=== PATIENT | male | born 1985 | race African-American/Black ===

== ENCOUNTER 2018-11-24 09:56 | Emergency (ER) | payer OTHER, SELFPAY ==
[2018-11-24] MEDS ORDERED: Fluorescein Opthalmic Strip ONE (10:06)
[2018-11-24] MEDS ORDERED: Prochlorperazine 10 MG/2 ML VIAL ONE (10:08)
[2018-11-24] MEDS ORDERED: Proparacaine 0.5% Opth 15 ML BOT ONE ×2 (10:08→10:09)
[2018-11-24] MEDS ORDERED: Lidocaine 1% (PF) 30 ML VIAL ONE (10:26)
--- NOTE | 2018-11-24 11:20 | CT ---
CT face noncontrast HISTORY: Facial injury. FINDINGS: The mandible, globes, and zygomatic arches are intact. Paranasal sinuses remain well aerate d. Soft tissue swelling over the left prefrontal scalp with a tiny pocket of gas along the lateral margin. IMPRESSION: No acute osseous abnormalities are demonstrated. Soft tissue swelling and laceration left frontal scalp.
== END 2018-11-24 11:33 | disposition home or self-care (01) ==
LOC: NAV ERS 09:56
DX: S01.112A Laceration without foreign body of left eyelid and periocular area, initial encounter (principal); S05.12XA Contusion of eyeball and orbital tissues, left eye, initial encounter; S05.02XA Injury of conjunctiva and corneal abrasion without foreign body, left eye, initial encounter; W50.0XXA Accidental hit or strike by another person, initial encounter; Z87.891 Personal history of nicotine dependence
CPT/HCPCS: 12011; 70486; J0780; J2001

== ENCOUNTER 2018-11-29 11:09 | Emergency (ER) | payer SELFPAY | END 2018-11-29 11:43 | disposition home or self-care (01) | LOC: NAV ERS 11:09 | DX: S01.81XD Laceration without foreign body of other part of head, subsequent encounter (principal); Z87.891 Personal history of nicotine dependence ==